=== PATIENT | female | born 1970 | race Two or more races ===

== ENCOUNTER 2019-07-31 10:49 | Emergency (ER) | payer BC, OTHER ==
[~2019-07-31] VITALS: Ht 162.6 cm; Wt 72.6 kg
[2019-07-31 10:50] VITALS: BP_SYST 110
--- NOTE | 2019-07-31 10:50 | NUR ---
BROUGHT BACK TO BED #8 AND TRIAGED. REPORT GIVEN TO KAI
--- NOTE | 2019-07-31 11:00 | NUR ---
Note roderickone in EDM - 07/31/19 at 1226 by [email or web address] Pt brought by family member, [place], pt presents to ER with dizziness and chest tightness x 3 days ,skin pink and warm, ambulatory , respirations even and unlabored, cap refill <3, no vomiting noted at this time.
--- NOTE | 2019-07-31 11:00 | NUR ---
Note undone in EDM - 07/31/19 at 1225 by [email or web address] Pt brought by family member, [place], pt presents to ER with dizziness x 3 days , skin pink and warm, ambulatory , respirations even and unlabored, cap refill <3, no vomiting noted at this time.
--- NOTE | 2019-07-31 11:00 | NUR ---
Pt brought by family member, A&Ox4, pt presents to ER with dizziness and chest tightness x 3 days skin pink and warm, ambulatory , respirations even and unlabored, cap refill <3, no vomiting noted at this time.
--- NOTE | 2019-07-31 11:15 | NUR ---
Dr Guy at bedside examining patient
[2019-07-31] MEDS ORDERED: MECLIZINE HCL 25 MG TABLET (ANITVERT) PO ONE (11:30)
--- NOTE | 2019-07-31 13:03 | NUR ---
Patient given written and verbal discharge instructions and verbalizes understanding. ER MD discussed with patient the results and treatment provided. Patient in stable condition. ID arm band removed. Rx of zofran given. Patient educated on pain management and to follow up with PMD. Pain Scale 0/10. Opportunity for questions provided and answered. Medication side effect fact sheet provided.
[2019-07-31 13:06] VITALS: BP_SYST 121
== END 2019-07-31 13:03 | disposition home or self-care (01) ==
LOC: SED 10:49
DX: R42 Dizziness and giddiness (principal); R11.0 Nausea
CPT/HCPCS: 70450; 93005; 99284; J8597